=== PATIENT | female | born 1945 | race Asian ===

== ENCOUNTER 2020-12-13 16:38 | Outpatient (CLI) | payer MEDICARE, MEDICAID | END 2020-12-13 16:39 | disposition home or self-care (01) | LOC: COV 16:38 | PROVIDERS: ATTEND Ophthalmology | DX: Z01.812 Encounter for preprocedural laboratory examination (principal); H25.89 Other age-related cataract; Z20.822 Contact with and (suspected) exposure to COVID-19 ==

== ENCOUNTER 2020-12-16 07:29 | Day surgery (SDC) | payer MEDICARE, MEDICAID ==
[~2020-12-16 07:29] MED LIST: BRIMONIDINE 0.2% OPHTH DROPS 5 ML ONE; BSS/LIDOCAINE/EPINEPHRINE 1 ML SYRINGE ONE; CYCLOPENTOLATE 1% OPHTH DROPS 2 ML ONE; EPINEPHrine 1 MG/ML AMP ONE; KETOROLAC 0.45% OPHTH DROPS ONE; PHENYLEPHRINE 2.5% OPHTH 2 ML DROPS ONE; PROPARACAINE 0.5% OPHTH DROPS 15 ML ONE; TIMOLOL 0.5% OPHTH DROPS ONE; TRIAMCIN/MOXIFLOX OPHTHALMIC 0.6 ML VIAL IO ONE; VANCOMYCIN OPHTHALMI 8MG/0.8ML 8 MG/0.8 ML SYRINGE IO ONE
[2020-12-16] MEDS ORDERED: LACTATED RINGERS 1,000 ML IV ONE (08:17)
--- NOTE | 2020-12-16 08:58 | ANESTHESIA ---
Pre-Anesthesia VS, & Labs - Diagnosis right senile cataract - Procedure right cataract extraction with intraocular lens Vital Signs: Temp Pulse Resp BP Pulse Ox 36.6 C 77 16 149/74 H 99 12/16/20 07:50 12/16/20 07:50 12/16/20 07:50 12/16/20 07:50 12/16/20 07:50 Height: 5 ft 2 in Weight (kg): 53.3 kg Body Mass Index: 21.4 BMI Classification: Healthy weight - NPO >8 hours - Is Patient ?: Yes Home Medications and Allergies Home Medications: Ambulatory Orders Alendronate [Fosamax] 70 mg PO Q7D 12/16/20 Ascorbic Acid [Vitamin C] 500 mg PO 12/16/20 Calcium Carbonate [Calcium] 600 mg PO 12/16/20 [place]-3/Dha/Epa/Fish Oil [Fish Oil 1,000 mg Softgel] 1 each PO 12/16/20 amLODIPine [Norvasc] 5 mg PO ONCE 12/16/20 Alendronate [Fosamax] 70 mg PO Q7D 12/16/20 Ascorbic Acid [Vitamin C] 500 mg PO 12/16/20 Calcium Carbonate [Calcium] 600 mg PO 12/16/20 [place]-3/Dha/Epa/Fish Oil [Fish Oil 1,000 mg Softgel] 1 each PO 12/16/20 amLODIPine [Norvasc] 5 mg PO ONCE 12/16/20 Allergies/Adverse Reactions: Allergies Allergy/AdvReac Type Severity Reaction Status Date / Time No Known Drug Allergies Allergy Verified 12/16/20 08:03 Anes History & Medical History - Anesthetic History Anesthesia Complications: reports: No previous complications - Medical History Cardiovascular: reports: Hypertension Pulmonary: reports: None Gastrointestinal: reports: None Urinary: reports: None Musculoskeletal: reports: Rheumatoid arthritis Endocrine/Autoimmune: reports: None Skin: reports: None History of Cancer?: No - Surgical History General: reports: Colonoscopy Gynecologic: reports: section Exam General: Alert Dental: WNL Mouth Openin Fingerbreadth Neck Mobility: Normal Mallampati classification: III Respiratory: Lungs clear Cardiovascular: Regular rate Mental/Cognitive Status: Alert/Oriented X3 Plan Anesthesia Type: MAC Consent for Procedure(s) Verified and Reviewed: Yes Code Status: Attempt Resuscitation ASA classification: 2-Mild systemic disease Is this case an emergency?: No
[2020-12-16] MEDS ORDERED: MIDAZOLAM 2 MG/2 ML VIAL ONE (09:36)
[2020-12-16] MEDS ORDERED: TRYPAN BLUE 0.5 ML SYRINGE IO ONE (09:58)
[2020-12-16] MEDS ORDERED: BRIMONIDINE 0.2% OPHTH DROPS 5 ML OPTH ONE (10:01)
[2020-12-16] MEDS ORDERED: EPINEPHrine 1 MG/ML AMP IR ONE (10:01)
[2020-12-16] MEDS ORDERED: BSS/LIDOCAINE/EPINEPHRINE 1 ML SYRINGE IO ONE (10:02)
[2020-12-16] MEDS ORDERED: TRIAMCIN/MOXIFLOX OPHTHALMIC 0.6 ML VIAL IO ONE (10:02)
[2020-12-16] MEDS ORDERED: TIMOLOL 0.5% OPHTH DROPS OPTH ONE (10:02)
[2020-12-16] MEDS ORDERED: CHONDR SULF/HYALURONATE SYRINGE IO ONE ×2 (10:02)
[2020-12-16] MEDS ORDERED: VANCOMYCIN OPHTHALMI 8MG/0.8ML 8 MG/0.8 ML SYRINGE IO ONE (10:03)
[2020-12-16] MEDS ORDERED: PROPARACAINE 0.5% OPHTH DROPS 15 ML EACHEYE ONE (10:03)
[2020-12-16] MEDS ORDERED: ACETYLCHOLINE 20 MG/2 ML KIT IO ONE ×2 (10:27→10:28)
[2020-12-16] MEDS ORDERED: LACTATED RINGERS 800 ML IV ONE (10:35)
--- NOTE | 2020-12-16 10:49 | OPERATIVE REPORT ---
Operative Report - Other Other Information/Narrative: Date of Surgery: 12/16/20 Preop Dx: Complex, visually significant cataract right eye. Complex due to small pupil requiring staining of the lens capsule due to poor red reflex. This was the first cataract surgery. Postop Dx: Same Procedure: Phacoemulsification with posterior chamber intraocular lens implant right eye Surgeon: Dr. Jose C Jhaveri Anesthesia: Monitored anesthesia care Complications: Loss of capsular support during phacoemulsification without vitreous loss Operative Indications: This is a 75-year-old F with progressive vision loss in the right eye due to brunescent cataract and 2+ posterior subcapsular cataract. Best corrected visual acuity was 20/70 with glare to light perception vision in the right eye. Indications for surgery were: - Difficulty reading - Difficulty seeing words, closed captions, or game scores on TV - Difficulty seeing street signs - Difficulty with glare or bright lights in any situation The patient was consented at length concerning the risks and benefits of cataract surgery after which the patient expressed a desire to proceed with surgery. Operative Procedure: The patient was taken into OR#3 and placed under monitored anesthesia care. A surgical time-out was conducted confirming correct patient, correct procedure, and correct surgical site. The patient was given topical anesthesia and then prepped and draped in the usual sterile fashion. The eye was entered at the 6 and 3 oclock positions. Intracameral Shugarcaine was injected into the anterior chamber followed by a dispersive viscoelastic. Typan Blue was injected into the anterior chamber and onto the anterior capsule to stain the capsule. A continuous-tear curvilinear capsulorhexis was performed. The nucleus was hydrodissected. Phacoemulsification was started but the phaco handpiece was not emulsifying and had to be replaced. The lens was extremely hard, large, and leathery. Once most of the lens was removed it became obvious that the posterior capsule was gone but there was no evidence of vitreous coming forward. As a precaution the posterior chmaber was filled with Viscoat. The rest of the lens was removed with phaco. There was no cortex to clean up. Another check for vitreous to the wound came up clean. The iris had been damage by three bites from the phaco (the iris also came to the phaco wound twice). With no capsular support it was decided to leave the patient's eye aphakic with a plan to place an anterior chamber IOL at a later date. Miostat was injected into the anterior chamber to bring the pupil down. The wounds were hydrated and the eye inflated to physiologic pressure using balanced salt solution. Approximately 0.25ml of a mixture of triamcinolone and moxifloxacin was injected trans-sclerally into the vitreous in the inferotemporal quadrant using a 30 gauge cannula. An additional 0.55ml of a mixture of triamcinolone, moxifloxacin, and vancomycin was injected subconjunctivally in the superior quadrant for infection and inflammation prophylaxis. Wound integrity was checked with Weck-Pauly sponges. The patient was taken from the operating room in good condition, she and her daughter were informed of the complication and the plan for placing an IOL later, and given post-op instructions.
[2020-12-16 11:09] VITALS: BP 124/60
--- NOTE | 2020-12-16 13:43 | ANESTHESIA POST OP EVALUATION ---
Anesthesia Post Eval - Post Anesthesia Eval Vitals: Last Vital Signs Temp 36.5 C 12/16/20 11:05 Pulse 70 12/16/20 11:05 Resp 18 12/16/20 11:05 BP 124/60 12/16/20 11:05 Pulse Ox 100 12/16/20 11:05 CV Function Including HR & BP: Stable Pain Control: Satisfactory Nausea & Vomiting: Negative Mental Status: Baseline Respiratory Status: Airway Patent Hydration Status: Satisfactory Anesthesia Complications: None
== END 2020-12-16 07:30 | disposition home or self-care (01) ==
LOC: SDS 07:29
PROVIDERS: ATTEND Ophthalmology
DX: H25.89 Other age-related cataract (principal); I10 Essential (primary) hypertension; M06.9 Rheumatoid arthritis, unspecified; R73.03 Prediabetes
CPT/HCPCS: 66982; A9270; J3490; J7120

== ENCOUNTER 2020-12-30 07:00 | Day surgery (SDC) | payer MEDICARE, MEDICAID ==
[~2020-12-30 07:00] MED LIST changes: -CYCLOPENTOLATE 1% OPHTH DROPS 2 ML ONE; -PHENYLEPHRINE 2.5% OPHTH 2 ML DROPS ONE
[2020-12-30] MEDS ORDERED: LACTATED RINGERS 1,000 ML IV ONE ×2 (07:20→10:00)
--- NOTE | 2020-12-30 07:37 | ANESTHESIA ---
Pre-Anesthesia VS, & Labs - Diagnosis aphakia R - Procedure ant chamber IOL Vital Signs: Temp Pulse Resp BP Pulse Ox 36.3 C L 78 16 113/85 H 98 12/30/20 07:06 12/30/20 07:06 12/30/20 07:06 12/30/20 07:06 12/30/20 07:06 Height: 5 ft 2 in Weight (kg): 53 kg Body Mass Index: 21.3 BMI Classification: Healthy weight - NPO >8 hours - Is Patient ?: No Home Medications and Allergies Alendronate [Fosamax] 70 mg PO Q7D 12/16/20 Ascorbic Acid [Vitamin C] 500 mg PO DAILY 12/16/20 Calcium Carbonate [Calcium] 600 mg PO DAILY 12/16/20 [place]-3/Dha/Epa/Fish Oil [Fish Oil 1,000 mg Softgel] 1 each PO DAILY 12/16/20 amLODIPine [Norvasc] 5 mg PO ONCE 12/16/20 Allergies/Adverse Reactions: Allergies Allergy/AdvReac Type Severity Reaction Status Date / Time No Known Drug Allergies Allergy Verified 12/16/20 08:03 Anes History & Medical History - Anesthetic History Anesthesia Complications: reports: No previous complications Family history of Anesthesia Complications: Denies Family history of Malignant Hyperthermia: Denies - Medical History Cardiovascular: reports: Hypertension Pulmonary: reports: None Gastrointestinal: reports: None Urinary: reports: None Musculoskeletal: reports: Rheumatoid arthritis Endocrine/Autoimmune: reports: None Skin: reports: None - Surgical History General: reports: Colonoscopy Gynecologic: reports: section Exam General: Alert, Oriented x3, Cooperative Dental: WNL Mouth Openin Fingerbreadth Neck Mobility: Normal Mallampati classification: II Thyromental Distance: 4-6 cm Respiratory: Lungs clear Cardiovascular: Regular rate Plan Anesthesia Type: MAC Consent for Procedure(s) Verified and Reviewed: Yes Code Status: Attempt Resuscitation ASA classification: 2-Mild systemic disease Is this case an emergency?: No
[2020-12-30] MEDS ORDERED: MIDAZOLAM 2 MG/2 ML VIAL ONE (07:39)
[2020-12-30] MEDS ORDERED: PILOCARPINE 1% OPHTH DROPS ONE (08:25)
[2020-12-30] MEDS ORDERED: ACETYLCHOLINE 20 MG/2 ML KIT IO ONE ×2 (08:44→08:48)
[2020-12-30] MEDS ORDERED: BRIMONIDINE 0.2% OPHTH DROPS 5 ML OPTH ONE (08:46)
[2020-12-30] MEDS ORDERED: TIMOLOL 0.5% OPHTH DROPS OPTH ONE (08:47)
[2020-12-30] MEDS ORDERED: EPINEPHrine 1 MG/ML AMP IR ONE (08:47)
[2020-12-30] MEDS ORDERED: BSS/LIDOCAINE/EPINEPHRINE 1 ML SYRINGE IO ONE (08:47)
[2020-12-30] MEDS ORDERED: CHONDR SULF/HYALURONATE SYRINGE IO ONE (08:47)
[2020-12-30] MEDS ORDERED: VANCOMYCIN OPHTHALMI 8MG/0.8ML 8 MG/0.8 ML SYRINGE IO ONE (08:48)
[2020-12-30] MEDS ORDERED: TRIAMCIN/MOXIFLOX OPHTHALMIC 0.6 ML VIAL IO ONE (08:48)
[2020-12-30] MEDS ORDERED: PROPARACAINE 0.5% OPHTH DROPS 15 ML EACHEYE ONE (08:48)
[2020-12-30] MEDS ORDERED: fentaNYL 100 MCG/2 ML VIAL ONE (09:11)
--- NOTE | 2020-12-30 09:41 | OPERATIVE REPORT ---
Operative Report - Other Other Information/Narrative: Date of Surgery: 12/30/20 Preop Dx: Aphakia right eye. Cataract extraction was performed in the right eye on 12/16/20. Postop Dx: Same Procedure: Anterior chamber intraocular lens implant right eye Surgeon: Dr. Jose C Jhaveri Anesthesia: Monitored anesthesia care Complications: None Operative Indications: This is a 75-year-old F who underwent cataract extraction surgery with planned IOL implantation 2 weeks ago but who was left aphakic due to loss of capsular support during the cataract extraction. Indications for surgery were: - Aphakia - Overall decrease in vision The patient was consented at length concerning the risks and benefits of secondary IOL implantatio surgery after which the patient expressed a desire to proceed with surgery. Operative Procedure: The patient was taken into OR#3 and placed under monitored anesthesia care. A surgical time-out was conducted confirming correct patient, correct procedure, and correct surgical site. The patient was given topical anesthesia and then prepped and draped in the usual sterile fashion. The eye was entered at the 6 and 3 oclock positions through the previous incisions. Miochol was injected into the anterior chamber. Intracameral Shugarcaine was injected into the anterior chamber followed by a dispersive viscoelastic. The phaco wound was widened to 6mm using the 2.5mm keratome. A Sheets glide was placed through the wound and engaged the nasal angle. An [place] [id number] 19.5 diopter anterior chamber IOL was slid into the anterior chamber over the Sheets glide. The Sheets glide was then removed from the anterior chamber and the trailing IOL haptic was tucked into the temporal angle using a Kuglin hook. The anterior chamber was then flooded with a cohesive viscoelastic. The vitrector was used on I/A-Cut to place an iridotomy in the peripheral nasal iris. The IOL was positioned and the iris pushed behind the IOL (it kept wanting to billow forward of the IOL). The viscoelastic material was aspirated from the anterior chamber. Three 10-0 nylon sutures were placed across the phaco wound. The wounds were hydrated and the eye inflated to physiologic pressure using balanced salt solution. Approximately 0.25ml of a mixture of triamcinolone and moxifloxacin was injected trans-sclerally into the vitreous in the inferotemporal quadrant using a 30 gauge cannula. An additional 0.55ml of a mixture of triamcinolone, moxifloxacin, and vancomycin was injected subconjunctivally in the superior quadrant for infection and inflammation prophylaxis. Wound integrity was checked with Weck-Pauly sponges. The patient was taken from the operating room in good condition and given post-op instructions.
[2020-12-30 10:00] VITALS: BP 122/78
--- NOTE | 2020-12-30 10:02 | ANESTHESIA POST OP EVALUATION ---
Anesthesia Post Eval - Post Anesthesia Eval Vitals: Last Vital Signs Temp 36 C L 12/30/20 09:59 Pulse 75 12/30/20 09:59 Resp 15 12/30/20 09:59 BP 122/78 12/30/20 09:59 Pulse Ox 99 12/30/20 09:59 CV Function Including HR & BP: Stable Pain Control: Satisfactory Nausea & Vomiting: Negative Mental Status: Baseline Respiratory Status: Airway Patent Hydration Status: Satisfactory Anesthesia Complications: None
== END 2020-12-30 07:01 | disposition home or self-care (01) ==
LOC: SDS 07:00
PROVIDERS: ATTEND Ophthalmology
DX: H27.01 Aphakia, right eye (principal); I10 Essential (primary) hypertension; M06.9 Rheumatoid arthritis, unspecified; Z79.899 Other long term (current) drug therapy
CPT/HCPCS: 66985; A9270; J3490; J7120